=== PATIENT | female | born 1990 | race Caucasian/White ===

== ENCOUNTER → 2017-04-14 | Outpatient (CLI) | payer BC ==
[~2017-04-14] MED LIST: NORCO 10-325 T1 EACH PO
== END ==
LOC: LAB 08:35
DX: Z32.00 Encounter for pregnancy test, result unknown (principal)
CPT/HCPCS: 36415; 84702

== ENCOUNTER 2017-04-15 11:03 | Emergency (ER) | payer BC ==
[2017-04-15 11:54] LABS: HEMOGLOBIN 13.3 gm/dl (12.3-15.3); RED BLOOD COUNT 4.81 M/UL (4.00-5.10); WHITE BLOOD COUNT 11.5 K/UL (4.5-11.0)
[2017-04-15 12:13] LABS: BUN/CREATININE RATIO 11 (0-10)
[2017-04-15] MEDS ORDERED: NORCO 10-325 T1 EACH PO (17:08)
== END 2017-04-15 14:45 | disposition admitted as inpatient to this hospital (09) ==
LOC: ER1 11:03
PROVIDERS: Emergency Medicine
DX: O20.0 Threatened abortion (principal); Z3A.00 Weeks of gestation of pregnancy not specified
CPT/HCPCS: 36415; 76817; 80053; 81001; 83690; 84702; 85025; 86900; 86901; 99284; J1100; J1885; J2250; J2270; J2405; J2710; J2795; J3010; J7120